=== PATIENT | female | born 1990 | race Asian ===

== ENCOUNTER 2020-10-15 00:22 | Emergency (ER) | payer SELFPAY ==
[~2020-10-15] VITALS: Ht 170.2 cm; Wt 66.0 kg
[2020-10-15 02:56] LABS: BASOPHILS % 0.1 % (0.0-2.0); EOSINOPHILS % 0.7 % (0.0-5.0); HEMOGLOBIN. 10.8 g/dL (12.0-16.0); LYMPHOCYTES % 14.6 % (20.0-50.0); MEAN CORPUSCULAR HEMOGLOBIN 26.1 pg (28.0-32.0); MEAN CORPUSCULAR VOLUME 79.6 fL (81.0-99.0); MEAN PLATELET VOLUME 6.4 fl (7.4-10.4); MONOCYTES % 5.6 % (2.0-8.0); PLATELET 337 x1000/uL (130-400); RED BLOOD CELL COUNT 4.14 mill/uL (4.2-5.4); RED CELL DISTRIBUTION WIDTH 13.7 % (11.6-14.6)
[2020-10-15 03:03] LABS: CHLORIDE 106 mEq/L (98-107)
[2020-10-15] MEDS ORDERED: IOHEXOL-350 100 ML BOTTLE ONE (03:24)
[2020-10-15] MEDS ORDERED: CEFTRIAXONE 1 G PREMIX 50 ML IV NR (04:00)
[2020-10-15] MEDS ORDERED: AZITHROMYCIN 500 MG in DEXT 5% WATER 250 ML IV SCH (04:30)
[2020-10-15] MEDS ORDERED: AZIT250T12 MT (05:02)
[2020-10-15 05:11] VITALS: BP 101/67
[2020-10-15] MEDS ORDERED: DEXAMETHASONE 10 MG/ML VIAL IV NR (05:15)
== END 2020-10-15 05:21 | disposition home or self-care (01) ==
LOC: ER 00:22
DX: J98.4 Other disorders of lung (principal); R05 Cough
CPT/HCPCS: 36415; 71045; 71275; 80053; 81025; 85025; 96365; 96375; 99285; J0456; J0696; J1100; J7060; Q9967